=== PATIENT | female | born 1965 | race Caucasian/White ===

== ENCOUNTER 2018-08-25 12:16 | Emergency (ER) | payer SELFPAY ==
[~2018-08-25] VITALS: Ht 160 cm; Wt 65.3 kg
[2018-08-25 12:43] VITALS: Ht 160 cm; Wt 65.3 kg
[2018-08-25 14:47] LABS: BASOPHIL % 0.2 % (0-2); PLATELET COUNT 286 x10^3mcL (130-400); RED CELL DISTRIBUTION WIDTH 14.9 % (11.5-14.5)
[2018-08-25 14:52] LABS: CALCIUM 8.7 mg/dL (8.5-10.1); CARBON DIOXIDE 29.4 mmol/L (21-32); CHLORIDE SERUM 96 mmol/L (98-107); CREATININE SERUM 0.9 mg/dL (0.6-1.0); GFR1 > 60 mL/min; GLUCOSE SERUM 104 mg/dL (74-106); POTASSIUM SERUM 4.1 mmol/L (3.5-5.1); SODIUM SERUM 132 mmol/L (136-145)
[2018-08-25 14:56] LABS: ALBUMIN 2.9 g/dL (3.4-5.0); ALKALINE PHOSPHATASE 131 U/L (46-116); ALT/SGPT 14 U/L (14-59); AMYLASE 25 U/L (25-115); AST/SGOT 10 U/L (15-37); BILIRUBIN TOTAL 0.4 mg/dL (0.20-1.00); LIPASE 57 IU/L (73-393); TOTAL PROTEIN, SERUM 7.7 g/dL (6.4-8.2)
[2018-08-25 15:27] LABS: microscopic required? YES; urine erythrocyte TRACE (NEGATIVE)
[2018-08-25 15:54] LABS: AMPHETAMINE QUAL UR POSITIVE (See below)
[2018-08-25 16:27] VITALS: BP 144/72
== END 2018-08-25 16:27 | disposition home or self-care (01) ==
LOC: ED 12:16
PROVIDERS: Specialist
DX: N94.89 Other specified conditions associated with female genital organs and menstrual cycle (principal)
CPT/HCPCS: G0480; J1885; J2405; J3010